=== PATIENT | female | born 1995 | race Caucasian/White ===

== ENCOUNTER 2016-12-31 20:49 | Emergency (ER) | payer OTHER, MEDICAID ==
--- NOTE | 2017-01-01 20:00 | ER ---
ADMIT: 12/31/2016 RM/LOC: ER [facility] MR#: [id number] [facility] [address] [place] [id number] ALPHONSO AHUJA [address] [address] Emergency Room Report SEX: F AGE: 21 : 1995 DATE: 12/31/2016 TIME: 2049 hours. Please refer to my T-sheet for complete H and P. HISTORY OF PRESENT ILLNESS: Briefly, the patient is a 21-year-old, who about 10 minutes ago was finishing Romansh when she has noticed her lips were swollen. No shortness of breath. No trouble breathing. No swelling in her throat. She has had this happen in the past. She has actually had allergy testing, but she does not remember it coming on so sudden. PHYSICAL EXAMINATION: VITAL SIGNS: Here are stable. Her saturations are 100%. GENERAL: No acute distress. HEENT: She has a slight swelling of her right upper lip, very minimal. Throat is clear. LUNGS: Clear. EMERGENCY DEPARTMENT COURSE: I gave her Decadron 10 IM, Benadryl 50 mg p.o. She is ready for discharge. ASSESSMENT: Acute allergic reaction to possibly food, maybe something in the Romansh that she ate multiple different kinds. No shellfish though. PLAN: Prednisone 20 mg b.i.d. x5 days if it does not resolve by tomorrow, Benadryl every 6 to 8 hours. Return if worse or problems, follow up with Jono. Martin Holland MD/ josh JOB #: [id number] CC: Martin Holland MD, Attending Physician Kelly De La Cruz PA-C, Family Physician
== END 2016-12-31 21:23 | disposition home or self-care (01) ==
LOC: ER 20:49
DX: T78.1XXA Other adverse food reactions, not elsewhere classified, initial encounter (principal); R22.0 Localized swelling, mass and lump, head; F32.9 Major depressive disorder, single episode, unspecified